=== PATIENT | female | born 1985 | race Caucasian/White ===

== ENCOUNTER 2021-09-29 06:52 | Emergency (ER) | payer MEDICAID, SELFPAY ==
[2021-09-29 07:01] VITALS: BP 137/80; PULSE 90; RESP 18; TEMP 36.5; O2SAT 98; BMI 21.7
--- NOTE | 2021-09-29 07:25 | ED_ITS ---
HPI - General Adult General: Chief complaint: General Medical Stated complaint: Bloody stool Time Seen by Provider: 09/29/21 06:53 Source: patient Mode of arrival: ambulatory Limitations: no limitations History of Present Illness: 36-year-old female presents emergency room with complaint of abdominal pain and cramping she describes as gas pains that began around 3 AM today. Around 6 AM she had an bright red blood per rectum she has had a couple episodes she has not had any vomiting she denies any hematemesis no black tarry stools she has not previously had episodes like this in the past she does have some mild hemorrhoids she currently is having her menses. She has also had problems with irritable bowel in the past but never had any bleeding no history of Crohn's or ulcerative colitis she is not on any anticoagulants does not take any NSAIDs regularly. Onset (ago): hour(s) Severity: mild Relieving factors: none Exacerbating factors: none Associated symptoms: Deny chest pain, confusion, cough, diaphoresis, decreased appetite, dyspnea, fevers/chills, headache(s), malaise, nausea, rash, palpitations, seizures, short of breath, syncope, vomiting or weakness Treatments prior to arrival: none Review of Systems Const: Denies: fever(s), chills, fatigue, malaise or diaphoresis ENMT: Denies: throat pain, ear or mastoid pain, nasal discharge or nasal congestion Card: Denies: chest pain, palpitations or syncope Resp: Denies: dyspnea GI: Reports: hematochezia; Denies: abdominal pain, nausea or vomiting : Denies: flank pain, difficulty voiding, dysuria, urinary frequency or urinary urgency Skin/Breast: Denies: rash Neuro: Denies: headache(s) or confusion [facility] ED PFSH: Medical History (Updated 09/29/21 @ 17:01 by Chad Mackenzie DO) Asthma Surgical History (Updated 09/29/21 @ 17:01 by Chad Mackenzie DO) No pertinent past surgical history Female Reproductive History: Date of last menstrual period: 09/29/21 Physical Exam Const: COMMON NORMALS: no acute distress GENERAL APPEARANCE: cooperative and comfortable ORIENTATION/CONSCIOUSNESS: Yes awake, Yes oriented to person, Yes oriented to place and Yes oriented to time HENMT: COMMON NORMALS: normocephalic, atraumatic and hearing grossly normal bilaterally HEAD & SCALP: normocephalic and atraumatic Eye: COMMON NORMALS: Equal, round and reactive pupils present, EOMs intact bilaterally, conjunctivae normal and no scleral icterus CONJUNCTIVA: Yes conjunctivae normal PUPIL: Yes Equal, round and reactive pupils present Neck/C-Spine: COMMON NORMALS: full ROM, no lymphadenopathy, supple and no JVD Lymph: LYMPHATIC: no lymphadenopathy noted and no lymphedema noted Resp: COMMON NORMALS: normal respiratory effort, No retractions, No use of accessory muscles and clear to auscultation bilaterally AUSCULTATION: clear to auscultation bilaterally Cardio: COMMON NORMALS: no JVD, regular rate, regular rhythm and No murmurs present (Cardio) RATE: regular rate RHYTHM: regular rhythm GI: COMMON NORMALS: Soft to palpation and No hepatosplenomegaly present AUS CULTATION: Yes normoactive bowel sounds PALPATION: Yes Soft to palpation, No Tenderness to palpation present (GI), No Guarding due to palpation present (GI) and Yes No hepatosplenomegaly present Extremity: COMMON NORMALS: normal to inspection, capillary refill normal, no clubbing, cyanosis or edema, no calf tenderness and no pedal edema Neuro: SENSORIUM/ORIENTATION: Yes oriented to person, Yes oriented to place and Yes oriented to time Skin: COMMON NORMALS: no rashes or lesions noted GENERAL SKIN EXAM: no rashes or lesions noted Course Vital Signs: Vital signs: Vital Signs Temperature 97.7 F 09/29/21 07:01 Pulse Rate 75 09/29/21 09:22 Respiratory Rate 15 09/29/21 09:22 Blood Pressure 117/78 09/29/21 09:22 Pulse Oximetry 97 09/29/21 09:22 Oxygen Delivery Me thod 09/29/21 09:22 [facility] - General Adult Medical Decision Making Rectal exam was done there is a few small hemorrhoidal tags noninflamed actively bleeding Hemoccult of the stool was negative. Observe for now hemoglobin is stable follow-up with primary care for further evaluation including potential for endoscopy. Of note patient is having her period now she is quite convinced that the bleeding in the stool was from rectal source not vaginal. I did not see any bright red blood or have a positive Hemoccult at the time of rectal exam. Medical Records I reviewed the patient's medical records. Lab Data I reviewed the patient's lab results. : 09/29/21 07:20 09/29/21 07:20 Laboratory Results WBC 9.3 10^3/uL (4.0-10.0) 09/29/21 07:20 RBC 4.94 10^6/uL (4.1-5.3) 09/29/21 07:20 Hgb 14.7 g/dL (11.5-15.3) 09/29/21 07:20 Hct 43.7 % (37.0-47.0) 09/29/21 07:20 MCV 88.5 fl (81-99) 09/29/21 07:20 MCH 29.8 pg (28.0-34.0) 09/29/21 07:20 MCHC 33.6 g/dL (30.0-36.0) 09/29/21 07:20 RDW 12.7 % (12.1-15.1) 09/29/21 07:20 Plt Count 258 10^3/cmm (130-400) 09/29/21 07:20 MPV 10.9 fL (7.4-10.4) H 09/29/21 07:20 Neut % (Auto) 69.7 % 09/29/21 07:20 Lymph % (Auto) 22.7 % 09/29/21 07:20 Amite % (Auto) 4.9 % 09/29/21 07:20 Eos % (Auto) 1.8 % 09/29/21 07:20 Baso % (Auto) 0.6 % 09/29/21 07:20 Neut # (Auto) 6.46 10^3/uL (1.8-7.7) 09/29/21 07:20 Lymph # (Auto) 2.1 10^3/uL (0.8-4.8) 09/29/21 07:20 Amite # (Auto) 0.5 10^3/uL (0.2-0.9) 09/29/21 07:20 Eos # (Auto) 0.2 10^3/uL (0.0-0.8) 09/29/21 07:20 Baso # (Auto) 0.1 10^3/uL (0.0-0.1) 09/29/21 07:20 Nucleated RBC % (auto) 0 % 09/29/21 07:20 Nucleated RBCs # 0.0 /100WBC 09/29/21 07:20 PT 13.20 SECONDS (12.1-14.9) 09/29/21 07:20 INR 0.97 (0.8-1.2) 09/29/21 07:20 APTT 27.6 SECONDS (23.9-36.7) 09/29/21 07:20 Sodium 140 mmol/L (136-145) 09/29/21 07:20 Potassium 3.8 mmol/L (3.5-5.1) 09/29/21 07:20 Chloride 104 mmol/L (98-107) 09/29/21 07:20 Carbon Dioxide 23 mmol/L (22-29) 09/29/21 07:20 Anion Gap 16.8 (5-19) 09/29/21 07:20 BUN 9 mg/dL (6-20) 09/29/21 07:20 Creatinine 0.7 mg/dL (0.5-0.9) 09/29/21 07:20 GFR Calculation 93.6 mL/min (90-130) 09/29/21 07:20 Glucose 100 mg/dL (65-115) 09/29/21 07:20 Calculated Osmolality 289 mOsm/kg (285-295) 09/29/21 07:20 Calcium 9.4 mg/dL (8.5-10.5) 09/29/21 07:20 Total Bilirubin 0.7 mg/dL (0.15-1.2) 09/29/21 07:20 AST 11 U/L (0-32) 09/29/21 07:20 ALT 9 U/L (0-33) 09/29/21 07:20 Alkaline Phosphatase 63 U/L (35-105) 09/29/21 07:20 Total Protein 7.1 g/dL (6.6-8.7) 09/29/21 07:20 Albumin 4.9 g/dL (3.5-5.2) 09/29/21 07:20 Globulin 2.2 g/dL (1.3-4.6) 09/29/21 07:20 Discharge Plan Discharge Patient Disposition: Home Clinical Impression: Rectal bleeding Condition: Stable Prescriptions: No Action cetirizine 10 mg tablet 10 mg PO DAILY PRN (Reason: Allergy Symptoms) Tylenol 325 mg Capsule 325 mg PO QID PRN (Reason: Pain) ProAir HFA 90 mcg/actuation HFA aerosol inhaler 2 puff INHALATION Q4H PRN (Reason: Shortness Of Breath) Discharge Orders: Discharge ED (Routine); Ordered 09/29/21 Ordered By: Chad Mackenzie Referrals: Jesse Queen MD [Primary Care Provider] - Discharge Diet: Clear Liquid Discharge Activity: Resume usual activity Patient Instructions: Opioid Safety Activity Restrictions/Additional Instructions: Clear liquid diet for 24 to 48 hours and advance as tolerated. Case management will make arrangements for you to have follow-up with surgery for further evaluation. 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
[2021-09-29 07:30] VITALS: BP 138/85; PULSE 71; RESP 14; O2SAT 96
[2021-09-29 07:39] LABS: Basophils # 0.1 10^3/uL (0.0-0.1); Basophils % 0.6 %; Eosinophils # 0.2 10^3/uL (0.0-0.8); Eosinophils % 1.8 %; Hematocrit 43.7 % (37.0-47.0); Hemoglobin 14.7 g/dL (11.5-15.3); Lymphocytes # 2.1 10^3/uL (0.8-4.8); Lymphocytes % 22.7 %; Mean Corpuscular HGB Conc 33.6 g/dL (30.0-36.0); Mean Corpuscular Hemoglobin 29.8 pg (28.0-34.0); Mean Corpuscular Volume 88.5 fl (81-99); Mean Platelet Volume 10.9 fL (7.4-10.4); Monocytes # 0.5 10^3/uL (0.2-0.9); Monocytes % 4.9 %; Neutrophils # 6.46 10^3/uL (1.8-7.7); Neutrophils % 69.7 %; Nucleated Red Blood Cells % 0 %; Platelet Count 258 10^3/cmm (130-400); Red Blood Count 4.94 10^6/uL (4.1-5.3); Red Cell Distribution Width 12.7 % (12.1-15.1); White Blood Count 9.3 10^3/uL (4.0-10.0)
[2021-09-29 07:55] LABS: Alanine Aminotransferase 9 U/L (0-33); Albumin Level 4.9 g/dL (3.5-5.2); Alkaline Phosphatase 63 U/L (35-105); Anion Gap 16.8 (5-19); Aspartate Amino Transferase 11 U/L (0-32); Blood Urea Nitrogen 9 mg/dL (6-20); Calcium 9.4 mg/dL (8.5-10.5); Carbon Dioxide 23 mmol/L (22-29); Chloride 104 mmol/L (98-107); Globulin 2.2 g/dL (1.3-4.6); Glomerular Filtration Rate 93.6 mL/min (90-130); Glucose 100 mg/dL (65-115); Osmolality Calculated 289 mOsm/kg (285-295); Potassium 3.8 mmol/L (3.5-5.1); Sodium 140 mmol/L (136-145); Total Bilirubin 0.7 mg/dL (0.15-1.2); Total Protein 7.1 g/dL (6.6-8.7)
[2021-09-29 08:00] LABS: INR 0.97 (0.8-1.2); Partial Thromboplastin Time 27.6 SECONDS (23.9-36.7)
[2021-09-29 09:22] VITALS: BP 117/78; PULSE 75; RESP 15; O2SAT 97
--- NOTE | 2021-09-29 11:02 | DCPLANNER ---
Addendum entered by Taniya Haynes 10/20/21 09:22: Patient had a follow up appointment scheduled with general surgery - patient did attend appointment Addendum entered by Taniya Haynes 10/06/21 08:11: Patient has a follow up appointment scheduled for October at 3:[address] Garcia at general surgery. Clinic will call patient with appointment information. Original Note: manager statistical programming had message to schedule a follow up appointment for patient with general surgery. manager statistical programming sent patients information to the front office staff at general surgery. Patients information will be printed and reviewed. Clinic will call patient with appointment information.
== END 2021-09-29 09:25 | disposition home or self-care (01) ==
PROVIDERS: Emergency Provider Family Medicine; PCP Family Medicine
DX: K62.5 Hemorrhage of anus and rectum (principal)
CPT/HCPCS: 80053; 85025; 85610; 85730; 99283

== ENCOUNTER → 2021-10-13 14:37 | Outpatient (BNVA) | payer MEDICAID, SELFPAY | PROVIDERS: PCP Family Medicine; Referring Provider Family Medicine; Visit Provider Surgery | DX: K92.1 Melena (principal); K52.9 Noninfective gastroenteritis and colitis, unspecified | CPT/HCPCS: 99203 ==

== ENCOUNTER 2021-12-02 07:19 | Day surgery (SDC) | payer MEDICAID, SELFPAY ==
[2021-11-30 13:52] VITALS: BMI 23.3
[2021-12-02 07:30] VITALS: BP 167/82; PULSE 84; RESP 18; TEMP 36.1; O2SAT 100
--- NOTE | 2021-12-02 07:41 | ANES.PREANE2 ---
Pre-Anesthetic Assessment Height/Weight: Height 1.68 m Weight 65.771 kg Temp Pulse Resp BP Pulse Ox O2 Del Method 97.0 F L 84 18 167/82 100 12/02/21 07:30 12/02/21 07:30 12/02/21 07:30 12/02/21 07:30 12/02/21 07:30 12/02/21 07:30 Preop Diagnosis: Bleeding per rectum and chronic diarrhea Operation Date: 12/02/21 08:30 Proposed Procedures p 63183 egd, 80076 colon K92.1(Not Applicable) - Mirza Garcia MD s Colonoscopy(Not Applicable) - Mirza Garcia MD Familial anesthetic complications: BP issues with one epidural in the last. No BP issues before or after event Was Beta Mal taken within 24 hours: N/A Was Clonidine taken within 24 hours: N/A Last intake: Intake Last Liquid Date 12/01/21 Last Liquid Time 12:00 Last Solid Date 11/30/21 Last Solid Time 12:00 Social Alcohol (Social) and Tobacco (Marijuana) Exam alert, oriented x 3, clear to auscultation bilaterally and regular rate & rhythm Airway Submandibular: within normal limits Cervical ROM: within normal limits Mallampati: Class II Dentition: full History/ROS No significant history except as noted and No significant complaints Pulmonary Asthma (Used inhialed a few hours ago) and Exertional Dyspnea CV/HEM None reported None reported Hepatic None reported GI None reported Umbilical hernia Metabolic None reported Musc/skel Lower Back Pain and Osteoarthritis/DJD Neuropsych Anxiety and None reported Anesthetic Plan ASA status: 2 Anesthesia: Anesthesia Evaluation, General and MAC Risk of > 500 ml blood loss (7ml/kg in children): No Medications/Allergies Home Medications Medication Instructions Recorded Confirmed Last Taken Type acetaminophen 325 mg capsule 325 mg PO QID PRN Pain 09/29/21 11/30/21 3 Days Ago History (Tylenol) ~11/29/21 albuterol sulfate 90 mcg/actuation 2 puff inhalation Q4H PRN 09/29/21 11/30/21 12/02/21 History aerosol inhaler (ProAir HFA) Shortness Of Breath cetirizine 10 mg tablet 10 mg PO DAILY PRN Allergy Symptoms 09/29/21 11/30/21 1 Day Ago History ~12/01/21 peg 3350-electrolytes 236 240 ml PO Q10M #4,000 mL 10/13/21 11/30/21 Unknown Rx gram-22.74 gram-6.74 gram-5.86 gram solution (Golytely) Allergies Allergy/AdvReac Type Severity Reaction Status Date / Time No Known Allergies Allergy Verified 10/14/21 06:59 PFS Anesthesia Medical History Asthma Surgical History No pertinent past surgical history Social History Smoking and tobacco status: former smoker Female Reproductive History Date of last menstrual period: 09/29/21 Data Anesthesia Cardiac Studies: No Data to Display
[2021-12-02 07:42] LABS: OR HCG Qualitative Urine Negative (Negative)
[2021-12-02] MEDS: sodium chloride 0.9% 1,000 ML 30 ML IV (07:48)
--- NOTE | 2021-12-02 07:49 | P.HP_ITS ---
Same Day Surgery H&P Indication for Procedure/HPI DATE OF PROCEDURE: December 02, 2021 CHIEF COMPLAINT/INDICATIONFOR SURGICAL PROCEDURE: Blood from the bottom PREOP DIAGNOSIS: Bleeding per rectum and chronic diarrhea PLANNED PROCEDURE: Operation Date: 12/02/21 08:30 Proposed Procedures p 57389 egd, 57225 colon K92.1(Not Applicable) - Mirza Garcia MD s Colonoscopy(Not Applicable) - Mirza Garcia MD 10/13/2021 This is a pleasant 56 years old female patient presented to the emergency department on 09/29/21 with history of rectal bleeding, at that time patient reported that she had couple episodes of bleeding per rectum and she never had those episodes before, complains of some mild hemorrhoids.? Denies history of irritable bowel syndrome or inflammatory bowel disease, yet she reports that her mom had IBS. Also patient reports history of loose stools.Patient reports history of diarrhea, has been going on for quite some time.? Patient denies history of recent travels, antibiotics, change in medications and she is not on any blood thinners, questionable source of water, no history of sick contacts, no history of thyroid disorders. Patient never had endoscopies before Interim history 12/02/2021 Patient comes today for diagnostic EGD and colonoscopy. Patient reports to me that she still have her gallbladder and she does encounter fatty dyspepsia every now and then. ROS All systems have been reviewed negative except as for the above or per problem list. Medications/Allergies* Home Medications Medication Instructions Recorded Confirmed Type acetaminophen 325 mg capsule 325 mg PO QID PRN Pain 09/29/21 11/30/21 History (Tylenol) albuterol sulfate 90 mcg/actuation 2 puff inhalation Q4H PRN 09/29/21 11/30/21 History aerosol inhaler (ProAir HFA) Shortness Of Breath cetirizine 10 mg tablet 10 mg PO DAILY PRN Allergy Symptoms 09/29/21 11/30/21 History Allergies/Adverse Reactions Allergy/AdvReac Type Severity Reaction Status Date / Time No Known Allergies Allergy Verified 10/14/21 06:59 Current Medications: Generic Name Dose Route Start Last Admin Trade Name Freq PRN Reason Stop Dose Admin Sodium Chloride 1,000 mls @ 30 mls/hr 12/02/21 07:30 12/02/21 07:48 Sodium Chloride 0.9% IV 12/03/21 07:29 30 mls/hr .Q24H SAL Administration Pertinent History/Comorbid Conditions* Medical History (Updated 10/14/21 @ 07:04 by Mirza Garcia MD) Asthma Surgical History (Updated 09/29/21 @ 17:01 by Chad Mackenzie DO) No pertinent past surgical history Social History Smoking and tobacco status: former smoker Pertinent Exam Findings alert, oriented x 3, regular rate & rhythm and procedure specific exam findings (Abdominal exam nontender nondistended soft) Recommendations Surgery/Procedure today (EGD and colonoscopy with possible biopsy) Other Plans: We will plan to request an ultrasound of the gallbladder and follow-up as an outpatient Coding Level of Care 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
[2021-12-02 08:05] VITALS: PULSE 88; RESP 16; O2SAT 100
[2021-12-02 08:29] VITALS: BP 102/69; PULSE 104; RESP 18; TEMP 36.3; O2SAT 93
[2021-12-02] MEDS: ipratropium-albuterol 3 mL Neb INHALATION (08:29)
[2021-12-02 08:34] VITALS: BP 107/52; PULSE 92; RESP 18; O2SAT 97
[2021-12-02 08:44] VITALS: BP 103/76; PULSE 92; RESP 18; O2SAT 95
--- NOTE | 2021-12-02 16:16 | ANE.PACU2 ---
Inpatient post-anesthesia follow up: Airway intact: Yes Vital signs: Temperature 97.3 F Pulse Rate 92 Respiratory Rate 18 Blood Pressure 103/76 Pulse Oximetry 95 Oxygen Delivery Me thod Room Air Oxygen Flow Rate 3 Fraction of Inspir ed Oxygen Hydration adequate: Yes Nausea and vomiting: No Pain level: 1 Mental status: Baseline
== END 2021-12-02 09:08 | disposition home or self-care (01) ==
PROVIDERS: Anesthesiology; PCP Family Medicine; Visit Provider Surgery
PROC: 0DJ08ZZ Inspection of Upper Intestinal Tract, Via Natural or Artificial Opening Endoscopic (ICD-10-PCS; CPT 43235; principal; 2021-12-02 08:30)
PROC: 0DJD8ZZ Inspection of Lower Intestinal Tract, Via Natural or Artificial Opening Endoscopic (ICD-10-PCS; CPT 45378; 2021-12-02 08:30)
DX: K92.1 Melena (principal); K29.80 Duodenitis without bleeding; K29.50 Unspecified chronic gastritis without bleeding; B96.81 Helicobacter pylori [H. pylori] as the cause of diseases classified elsewhere; Z87.891 Personal history of nicotine dependence
CPT/HCPCS: 43239; 45378; 81025; 82274; 83630; 84703; 87493; 87506; 88305; 94640; J2704; J7030; J7611

== ENCOUNTER 2022-02-20 09:26 | Outpatient (CLI) | payer MEDICAID, SELFPAY ==
--- NOTE | 2022-02-20 10:00 | FL_ITS ---
WS: [id number] Small bowel follow-through, 02/20/2022 Clinical Data: HEMORRHAGE OF ANUS RECTUM Comparison: None. Fluoroscopy time: 0min 39.205113ksg # of spot films: 3 Findings: The preliminary images demonstrated probable gallstones in the right upper quadrant. The remainder of the abdomen was normal. The patient ingested the barium and Gastrografin mixture. There was immediat e filling of the stomach and flow into the duodenum, jejunum and ileum. At 30 minutes post ingestion the ascending colon was filled. Imaging of the terminal ileum and cecum demonstrated no abnormalities . FL/FL small bowel [place] gastro [id number] Impression: Normal small bowel follow-through.
== END 2022-02-20 09:27 | disposition home or self-care (01) ==
LOC: RAD 09:27
PROVIDERS: PCP Family Medicine; Visit Provider Surgery
DX: K62.5 Hemorrhage of anus and rectum (principal)
CPT/HCPCS: 74250

== ENCOUNTER → 2022-05-22 10:58 | Outpatient (BNVA) | payer MEDICAID, SELFPAY | PROVIDERS: PCP Family Medicine; Referring Provider Family Medicine; Visit Provider Student in an Organized Health Care Education/Training Program | DX: M67.432 Ganglion, left wrist (principal) | CPT/HCPCS: 73100; 73110 ==

== ENCOUNTER → 2023-05-17 08:53 | Outpatient (BNVA) | payer MEDICAID, SELFPAY | PROVIDERS: PCP Family Medicine; Visit Provider Nurse Practitioner Family | DX: Z20.822 Contact with and (suspected) exposure to COVID-19 (principal) | CPT/HCPCS: 87426 ==

== ENCOUNTER → 2023-09-06 08:17 | Outpatient (BNVA) | payer SELFPAY | PROVIDERS: PCP Family Medicine; Visit Provider Nurse Practitioner Family | DX: R50.9 Fever, unspecified (principal) | CPT/HCPCS: 87426 ==

== ENCOUNTER 2023-09-09 07:51 | Emergency (ER) | payer SELFPAY ==
--- NOTE | 2023-09-09 08:00 | XRR_ITS ---
PROCEDURE INFORMATION: Exam: XR Chest Exam date and time: 09/09/2023 8:48 AM Age: 38 years old Clinical indication: Cough and dyspnea; Additional info: Dyspnea/cough TECHNIQUE: Imaging protocol: Radiologic exam of the chest. Views: 1 view. COMPARISON: No relevant prior studies available. FINDINGS: Lungs: Unremarkable. No consolidation. Pleural spaces: Unremarkable. No pleural effusion. No pneumothorax. Heart/Mediastinum: Unremarkable. No cardiomegaly. Bones/joints: Unremarkable. XR/XR chest 1V portable [id number] IMPRESSION: No acute findings.
--- NOTE | 2023-09-09 08:00 | W.ED.GENADLT ---
HPI - General Adult General: Chief complaint: General Medical Stated complaint: Sob,Fever,N/V Time Seen by Provider: 09/09/23 07:59 History of Present Illness: 38-year-old female presents emergency room complaining shortness of breath fever nausea vomiting for the last several days. 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 Patient complaining of myalgias and headache she also has a history of asthma has been using her albuterol more aggressively last few days. Associated symptoms: Reports dyspnea, headache(s) and malaise; Deny chest pain or rash Review of Systems Const: Reports: chills, body aches, fatigue and malaise; Denies: fever(s) Card: Denies: chest pain Resp: Reports: dyspnea, non-productive cough, wheezing and chest congestion GI: Denies: abdominal pain : Denies: dysuria, urinary frequency or urinary urgency Musc: Denies: neck pain or back pain Skin/Breast: Denies: rash Neuro: Reports: headache(s) PFSH ED PFSH: Medical History Asthma Surgical History No pertinent past surgical history Social History Smoking and tobacco/nicotine status: current some day tobacco/nicotine user (vape) Physical Exam Const: COMMON NORMALS: no acute distress GENERAL APPEARANCE: cooperative and comfortable ORIENTATION/CONSCIOUSNESS: Yes awake, Yes oriented to person, Yes oriented to place and Yes oriented to time HENMT: COMMON NORMALS: normocephalic, atraumatic and hearing grossly normal bilaterally HEAD & SCALP: normocephalic and atraumatic Resp: COMMON NORMALS: normal respiratory effort, No retractions and No use of accessory muscles AUSCULTATION: wheezes (Mild) Cardio: COMMON NORMALS: regular rate, regular rhythm and No murmurs present (Cardio) RATE: regular rate RHYTHM: regular rhythm GI: COMMON NORMALS: Soft to palpation and No hepatosplenomegaly present AUSCULTATION: Yes normoactive bowel sounds PALPATION: Yes Soft to palpation, No Tenderness to palpation present (GI), No Guarding due to palpation present (GI) and Yes No hepatosplenomegaly present Extremity: COMMON NORMALS: normal to inspection, capillary refill normal, no clubbing, cyanosis or edema, no calf tenderness and no pedal edema Neuro: SENSORIUM/ORIENTATION: Yes oriented to person, Yes oriented to place and Yes oriented to time Skin: COMMON NORMALS: no rashes or lesions noted GENERAL SKIN EXAM: no rashes or lesions noted Course Vital Signs: Vital signs: Vital Signs Temperature 97.8 F 09/09/23 08:01 Pulse Rate 85 09/09/23 09:06 Respiratory Rate 20 H 09/09/23 08:01 Blood Pressure 127/86 09/09/23 08:36 Pulse Oximetry 99 09/09/23 09:06 Oxygen Delivery Me thod Room Air 09/09/23 08:01 MDM - General Adult Medical Decision Making Given her known exposure to COVID-positive patient suspect that she had COVID complicated by her asthma and her oxygen sats are adequate. Ultimately we decided discharge patient home with steroid taper dexamethasone 6 mg daily as well as regular and aggressive use of albuterol over the next several days her COVID came back negative a full respiratory panel was done which was also negative. Suspect she may still have COVID given solid history and appropriate timing from exposure to onset of symptoms. In any event continue supportive cares for asthma exacerbation she is to return if she has worsening symptoms. Medical Records I reviewed the patient's medical records. Lab Data I reviewed the patient's lab results. 09/09/23 08:19 09/09/23 08:19 Radiology Impressions Chest X-Ray 09/09/23 08:00 IMPRESSION: No acute findings. Laboratory Results WBC 6.34 10^3/uL (3.29-11.43) 09/09/23 08:19 RBC 4.20 10^6/uL (3.85-5.65) 09/09/23 08:19 Hgb 12.50 g/dL (11.27-16.99) 09/09/23 08:19 Hct 36.2 % (36-47) 09/09/23 08:19 MCV 86.2 fl (85-98) 09/09/23 08:19 MCH 29.8 pg (27-33) 09/09/23 08:19 MCHC 34.5 g/dL (30-55) 09/09/23 08:19 RDW 12.7 % (12.1-15.1) 09/09/23 08:19 Plt Count 205 10^3/cmm (157-399) 09/09/23 08:19 MPV 10.6 fL (7.4-10.4) H 09/09/23 08:19 Neut % (Auto) 69.1 % 09/09/23 08:19 Lymph % (Auto) 20.0 % 09/09/23 08:19 [place] % (Auto) 8.2 % 09/09/23 08:19 Eos % (Auto) 1.9 % 09/09/23 08:19 Baso % (Auto) 0.5 % 09/09/23 08:19 Neut # (Auto) 4.38 10^3/uL (1.8-7.7) 09/09/23 08:19 Lymph # (Auto) 1.3 10^3/uL (0.8-4.8) 09/09/23 08:19 [place] # (Auto) 0.5 10^3/uL (0.2-0.9) 09/09/23 08:19 Eos # (Auto) 0.1 10^3/uL (0.0-0.8) 09/09/23 08:19 Baso # (Auto) 0.0 10^3/uL (0.0-0.1) 09/09/23 08:19 Nucleated RBC % (auto) 0 % 09/09/23 08:19 Nucleated RBCs # 0.0 /100WBC 09/09/23 08:19 Sodium 134 mmol/L (136-145) L 09/09/23 08:19 Potassium 4.1 mmol/L (3.5-5.1) 09/09/23 08:19 Chloride 99 mmol/L (98-107) 09/09/23 08:19 Carbon Dioxide 23 mmol/L (22-29) 09/09/23 08:19 Anion Gap 16.1 (5-19) 09/09/23 08:19 BUN 7 mg/dL (6-20) 09/09/23 08:19 Creatinine 0.6 mg/dL (0.5-0.9) 09/09/23 08:19 GFR Calculation 110.7 mL/min (90-130) 09/09/23 08:19 Glucose 118 mg/dL (65-115) H 09/09/23 08:19 Calculated Osmolality 277 mOsm/kg (285-295) L 09/09/23 08:19 Calcium 9.2 mg/dL (8.5-10.5) 09/09/23 08:19 Total Bilirubin 0.3 mg/dL (0.15-1.2) 09/09/23 08:19 AST 19 U/L (0-32) 09/09/23 08:19 ALT 22 U/L (0-33) 09/09/23 08:19 Alkaline Phosphatase 65 U/L (35-105) 09/09/23 08:19 Total Protein 7.5 g/dL (6.6-8.7) 09/09/23 08:19 Albumin 4.0 g/dL (3.5-5.2) 09/09/23 08:19 Globulin 3.5 g/dL (1.3-4.6) 09/09/23 08:19 Urine Color Yellow (Yellow) 09/09/23 09:01 Urine Appearance Clear (CLEAR) 09/09/23 09:01 Urine pH 6.5 (5-7) 09/09/23 09:01 Ur Specific [place] 1.005 (1.005-1.030) 09/09/23 09:01 Urine Protein Negative (Negative) 09/09/23 09:01 Urine Glucose (UA) Negative (Normal) 09/09/23 09:01 Urine Ketones Negative (Negative) 09/09/23 09:01 Urine Blood Trace (Negative) A 09/09/23 09:01 Urine Nitrate Negative (Negative) 09/09/23 09:01 Urine Bilirubin Negative (Negative) 09/09/23 09:01 Urine Urobilinogen 0.2 mg/dL (Negative) 09/09/23 09:01 Ur Leukocyte Esterase Negative (Negative) 09/09/23 09:01 Urine RBC 0-2 /hpf (0-2) 09/09/23 09:01 Urine WBC 0-5 /hpf (0-5) 09/09/23 09:01 Ur Squamous Epith Cells 0-5 /hpf (0-5) 09/09/23 09:01 Amorphous Sediment Not Reportable 09/09/23 09:01 Urine Bacteria None seen /hpf (NONE) 09/09/23 09:01 Hyaline Casts 0-4 /lpf H 09/09/23 09:01 Adenovirus (PCR) Not detected (NOT DETECT) 09/09/23 08:19 C. pneumoniae DNA (PCR) Not detected (NOT DETECT) 09/09/23 08:19 Coronavirus 229E (PCR) Not detected (NOT DETECT) 09/09/23 08:19 Coronavirus 229E (PCR) Not detected (NOT DETECT) 09/09/23 08:19 Human Metapneumovir PCR Not detected (NOT DETECT) 09/09/23 08:19 Influenza A (H1) PCR Not detected (NOT DETECT) 09/09/23 08:19 Influ A (H1/09) PCR Not detected (NOT DETECT) 09/09/23 08:19 Influenza A (H3) PCR Not detected (NOT DETECT) 09/09/23 08:19 Influenza Type A (PCR) Not detected (NOT DETECT) 09/09/23 08:19 Influenza Type B (PCR) Not detected (NOT DETECT) 09/09/23 08:19 M. pneumoniae (PCR) Not detected (NOT DETECT) 09/09/23 08:19 Parainfluenza 1 (PCR) Not detected (NOT DETECT) 09/09/23 08:19 Parainfluenza 2 (PCR) Not detected (NOT DETECT) 09/09/23 08:19 Parainfluenza 3 (PCR) Not detected (NOT DETECT) 09/09/23 08:19 Parainfluenza 4 (PCR) Not detected (NOT DETECT) 09/09/23 08:19 RSV Type A (PCR) Not detected (NOT DETECT) 09/09/23 08:19 RSV Type B (PCR) Not detected (NOT DETECT) 09/09/23 08:19 Entero/Rhino (PCR) Not detected (NOT DETECT) 09/09/23 08:19 SARS-CoV-2 (PCR) Not detected (NOT DETECT) 09/09/23 08:19 SARS-CoV-2 (PCR) Not detected (NOT DETECT) 09/09/23 08:19 All radiology interpretation(s) finalized by discharge Discharge Plan Discharge Patient Disposition: Home Clinical Impression: Suspected 2019-nCoV infection, Asthma Condition: Stable Prescriptions: New albuterol sulfate 90 mcg/actuation HFA aerosol inhaler 2 inh INHALATION Q4H PRN (Reason: shortness of breath or wheezing) Qty: 18 0RF dexamethasone 6 mg tablet 6 mg PO DAILY Qty: 7 0RF No Action albuterol sulfate [Ventolin HFA] 90 mcg/actuation HFA aerosol inhaler 2 puff inhalation Q4H PRN (Reason: shortness of breath or wheezing) Qty: 8.5 9RF fluticasone propion-salmeterol [Advair Diskus] 100-50 mcg/dose blister with device 1 inh inhalation BID Qty: 60 9RF cetirizine 10 mg tablet See Rx Instructions .ROUTE .COMPLEX Qty: 30 11RF Dose Instruction: TAKE 1 TABLET BY MOUTH DAILY FOR SEASONAL ALLERGIES Rx Instructions: TAKE 1 TABLET BY MOUTH DAILY FOR SEASONAL ALLERGIES acetaminophen [Tylenol] 325 mg Capsule 325 mg PO QID PRN (Reason: Pain) Discharge Orders: Discharge ED (Routine); Ordered 09/09/23 Ordered By: Chad Mackenzie Referrals: Jesse Queen MD [Primary Care Provider] - Discharge Diet: Usual diet Discharge Activity: Increase activity as tolerated Patient Instructions: Opioid Safety, Pain Management Activity Restrictions/Additional Instructions: Thank you for choosing [facility] for your healthcare needs today. It is very important that you follow up as instructed or that you return to the Emergency Department should you have concerns or if your condition changes or worsens in any way. You were seen today with complaints of flulike symptoms and shortness of breath based on your history and your physical exam findings and symptoms you most likely do have COVID-19. COVID test is pending. Recommend you start on steroids 6 mg a daily of dexamethasone for 1 week also use albuterol inhaler every 2 to 4 hours as needed for symptoms if your symptoms worsen return to the emergency room at the time you are seen in the ER your vital signs were normal and your oxygen saturation was normal. Coding Level of Care Code ED Tool Machine Set Up Operator for Keven Estrada
[2023-09-09 08:01] VITALS: BP 127/93; PULSE 110; RESP 20; TEMP 36.6; O2SAT 95
[2023-09-09 08:24] LABS: Basophils % 0.5 %; Eosinophils # 0.1 10^3/uL (0.0-0.8); Eosinophils % 1.9 %; Hematocrit 36.2 % (36-47); Lymphocytes # 1.3 10^3/uL (0.8-4.8); Mean Corpuscular HGB Conc 34.5 g/dL (30-55); Mean Corpuscular Hemoglobin 29.8 pg (27-33); Mean Corpuscular Volume 86.2 fl (85-98); Mean Platelet Volume 10.6 fL (7.4-10.4); Monocytes # 0.5 10^3/uL (0.2-0.9); Monocytes % 8.2 %; Neutrophils # 4.38 10^3/uL (1.8-7.7); Neutrophils % 69.1 %; Nucleated Red Blood Cells % 0 %; Platelet Count 205 10^3/cmm (157-399); Red Cell Distribution Width 12.7 % (12.1-15.1); White Blood Count 6.34 10^3/uL (3.29-11.43)
[2023-09-09] MEDS: sodium chloride 0.9% 1,000 ML 999 ML IV (08:29)
[2023-09-09] MEDS: acetaminophen 325 mg Tablet 650 MG PO (08:29)
[2023-09-09 08:36] VITALS: BP 127/86; PULSE 99; O2SAT 93
[2023-09-09 08:44] LABS: Alanine Aminotransferase 22 U/L (0-33); Alkaline Phosphatase 65 U/L (35-105); Aspartate Amino Transferase 19 U/L (0-32); Blood Urea Nitrogen 7 mg/dL (6-20); Calcium 9.2 mg/dL (8.5-10.5); Carbon Dioxide 23 mmol/L (22-29); Chloride 99 mmol/L (98-107); Globulin 3.5 g/dL (1.3-4.6); Glomerular Filtration Rate 110.7 mL/min (90-130); Glucose 118 mg/dL (65-115); Osmolality Calculated 277 mOsm/kg (285-295); Sodium 134 mmol/L (136-145); Total Bilirubin 0.3 mg/dL (0.15-1.2); Total Protein 7.5 g/dL (6.6-8.7)
[2023-09-09 09:01] LABS: Anion Gap 16.1 (5-19)
[2023-09-09 09:02] LABS: Potassium 4.1 mmol/L (3.5-5.1)
[2023-09-09 09:06] VITALS: PULSE 85; O2SAT 99
[2023-09-09 09:17] LABS: Charge for UA Resulting for Rev
[2023-09-09 09:35] LABS: Bilirubin Urine Negative (Negative); Blood Urine Trace (Negative); Glucose Urine UA Negative (Normal); Ketones Urine Negative (Negative); Leukocyte Esterase Urine Negative (Negative); Nitrate Urine Negative (Negative); Protein Urine Negative (Negative); Specific Gravity, Urine 1.005 (1.005-1.030); Urine Appearance Clear (CLEAR); Urine Color Yellow (Yellow); Urobilinogen Urine 0.2 mg/dL (Negative); pH Urine 6.5 (5-7)
[2023-09-09 09:40] LABS: Bacteria Urine None Seen /hpf; Hyaline Casts Urine 0-4 /lpf; RBC Urine 0-2 /hpf (0-2); Squamous Epithelial Cell Urine 0-5 /hpf (0-5); WBC Urine 0-5 /hpf (0-5)
[2023-09-09] MEDS: dexamethasone 10 mg/mL INJ IM (10:13)
[2023-09-09 10:50] LABS: Adenovirus Not Detected (NOT DETECT); Chlamydia Pneumoniae Not Detected (NOT DETECT); Coronavirus 229E,HKU1,NL63,OC4 Not Detected (NOT DETECT); Human Metapneumovirus Not Detected (NOT DETECT); Human Rhinovirus/Enterovirus Not Detected (NOT DETECT); Influenza A Not Detected (NOT DETECT); Influenza A H1 Not Detected (NOT DETECT); Influenza A H1-2009 Not Detected (NOT DETECT); Influenza A H3 Not Detected (NOT DETECT); Influenza B Not Detected (NOT DETECT); Mycoplasma Pneumoniae Not Detected (NOT DETECT); Parainfluenza Virus Type 1 Not Detected (NOT DETECT); Parainfluenza Virus Type 2 Not Detected (NOT DETECT); Parainfluenza Virus Type 3 Not Detected (NOT DETECT); Parainfluenza Virus Type 4 Not Detected (NOT DETECT); Respiratory Syncytial Virus A Not Detected (NOT DETECT); Respiratory Syncytial Virus B Not Detected (NOT DETECT); SARS-COV-2 Not Detected (NOT DETECT)
[2023-09-09 11:15] LABS: Adenovirus Not Detected (NOT DETECT); Coronavirus 229E,HKU1,NL63,OC4 Not Detected (NOT DETECT); Human Metapneumovirus Not Detected (NOT DETECT); Human Rhinovirus/Enterovirus Not Detected (NOT DETECT); Influenza A Not Detected (NOT DETECT); Influenza A H1 Not Detected (NOT DETECT); Influenza A H1-2009 Not Detected (NOT DETECT); Influenza A H3 Not Detected (NOT DETECT); Influenza B Not Detected (NOT DETECT); SARS-COV-2 Not Detected (NOT DETECT)
[2023-09-09 11:16] LABS: Chlamydia Pneumoniae Not Detected (NOT DETECT); Mycoplasma Pneumoniae Not Detected (NOT DETECT); Parainfluenza Virus Type 1 Not Detected (NOT DETECT); Parainfluenza Virus Type 2 Not Detected (NOT DETECT); Parainfluenza Virus Type 3 Not Detected (NOT DETECT); Parainfluenza Virus Type 4 Not Detected (NOT DETECT); Respiratory Syncytial Virus A Not Detected (NOT DETECT); Respiratory Syncytial Virus B Not Detected (NOT DETECT)
== END 2023-09-09 10:15 | disposition home or self-care (01) ==
PROVIDERS: Emergency Provider Family Medicine; PCP Family Medicine
DX: Z20.822 Contact with and (suspected) exposure to COVID-19 (principal); J45.909 Unspecified asthma, uncomplicated; F17.290 Nicotine dependence, other tobacco product, uncomplicated
CPT/HCPCS: 71045; 80053; 81003; 81015; 85025; 87486; 87581; 87633; 87635; 96360; 96361; 96372; 99284; J1100; J7030